=== PATIENT | male | born 1965 | race Two or more races ===

== ENCOUNTER 2017-01-11 19:03 | Emergency (ER) | payer OTHER ==
--- NOTE | 2017-01-11 19:12 | PDOC ---
History of Present Illness - General History Source: Patient Exam Limitations: No Limitations - History of Present Illness Initial Comments: 01/11/17 19:29 The patient is a 51 year old male, with a significant past medical history of HTN, HLD, and DM, who presents to the emergency department with intermittent abdominal pressure for about 2 months. The patient reports having intermittent abdominal pressure that often radiates from his abdomen to lower abdominal area and legs. He reports his pain is often alleviated after passing gas. He notes having a bowel movement every day, but denies any alleviation of his abdominal pressure. He notes during these episodes having elevated blood pressure and A1C. He denies any recent fevers, chills, headache or dizziness. He denies any recent nausea, vomit, or diarrhea. He denies any recent chest pain or shortness of breath. He denies any recent dysuria, frequency, urgency or hematuria. He denies having a intake worker. PAST MEDICAL HISTORY: See HPI PAST SURGICAL HISTORY: No significant history. FAMILY HISTORY: No pertinent history. SOCIAL HISTORY: Patient lives with family and is employed. MEDICATIONS: Reviewed. ALLERGIES: As per nursing notes. ROS General: No fevers or chills, no weakness, no weight loss HEENT: No change in vision. No sore throat. No ear pain CardioVascular: No chest pain or shortness of breath Respiratory:No cough, or wheezing. Gastrointestinal: +Abdominal pressure. No nausea, vomiting, diarrhea or constipation. No rectal bleeding Genitourinary: No dysuria, hematuria, or frequency Musculoskeletal: No joint or muscle pain or swelling Neurologic: No headache, vertigo, dizziness or loss of consciousness Psychiatric: No depression Skin: No rashes or easy bruising Endocrine: no increased thirst or abnormal weight change Allergic: no skin or latex allergy All other systems reviewed and normal Exam: General: Well-nourished well-developed individual, no acute distress HEENT: Throat: Normal, tonsils normal, no erythema or exudate Neck: Supple, no meningeal signs, no lymphadenopathy Eyes: Pupils equal reactive and round, extraocular motion intact Chest: Nontender to palpation Cardiac: S1-S2 normal, regular rate and rhythm, no murmurs rubs or gallops Respiratory: Lungs clear to auscultation bilateral Abdomen: Soft, nondistended, slightly increased bowel sounds, nontender to palpation diffusely Extremities: Warm, dry, no cyanosis, clubbing, or edema Skin: No rashes Neuro: Alert and oriented x3, nonfocal exam, grossly intact, normal gait Psych: Normal mood and affect <Gabe Albert - Last Filed: 01/11/17 19:55> - General History Source: Patient Exam Limitations: No Limitations - History of Present Illness Initial Comments: 01/11/17 20:17 A portion of this note was documented by scribe services under my direction. I have reviewed the details of the note, within reason, and agree with the documentation. The case summary and management plan written by me. Assessment and plan: This is a 51-year-old male who comes in complaining of increased abdominal gas with some decreased bowel movements. Patient has a history of diabetes. Patient said he hasn't been having intermittent episodes times several months now. Patient symptoms are most likely secondary to gastroparesis secondary to his diabetes. Patient had flat and upright abdominal films that do show a large amount of stool throughout the abdomen consistent with gastroparesis and chronic constipation. Discussed with patient the importance of getting purchasing some over-the- counter laxatives and taking on a daily basis also purchasing some fiber To take on a daily basis as well. Also discussed with patient the importance of following up with a intake worker to help him with management of his diabetes as his sugars have been trending higher and he is developing more complications of his underlying disease. Patient discharged home <Jimmie Robert I - Last Filed: 01/11/17 20:23> - General Chief Complaint: Pain Stated Complaint: ABDOMINAL PRESSUREPAIN Time Seen by Provider: 01/11/17 19:07 Past History <Gabe Albert - Last Filed: 01/11/17 19:55> - Past Medical History Diabetes: Yes (TYPE II) HTN: Yes Hypercholesterolemia: Yes - Psycho/Social/Smoking Cessation Hx Anxiety: No Suicidal Ideation: No Smoking History: Current every day smoker Number of Cigarettes Smoked Daily: 5 Information on smoking cessation initiated: Yes 'Breaking Loose' booklet given: 11/16/15 Hx Alcohol Use: No Drug/Substance Use Hx: No Substance Use Type: None <Jimmie Robert I - Last Filed: 01/11/17 20:23> - Past Medical History Allergies/Adverse Reactions: Allergies Allergy/AdvReac Type Severity Reaction Status Date / Time No Known Allergies Allergy Verified 01/11/17 19:05 Home Medications: Ambulatory Orders Glipizide 5 mg PO DAILY 01/11/17 Metformin HCl [Metformin HCl ER] 1,000 mg PO DAILY 01/11/17 Multivitamin [Poly-Vitamin] 1 each PO DAILY 01/11/17 Omeprazole 0 mg PO DAILY 01/11/17 *Physical Exam - Vital Signs Last Vital Signs Temp Pulse Resp BP Pulse Ox 98.1 F 73 18 184/102 100 01/11/17 19:04 01/11/17 19:04 01/11/17 19:04 01/11/17 19:04 01/11/17 19:04 <Gabe Albert - Last Filed: 01/11/17 19:55> - Vital Signs Last Vital Signs Temp Pulse Resp BP Pulse Ox 98.1 F 73 18 184/102 100 01/11/17 19:04 01/11/17 19:04 01/11/17 19:04 01/11/17 19:04 01/11/17 19:04 <Jimmie Robert I - Last Filed: 01/11/17 20:23> ED Treatment Course - LABORATORY CBC & Chemistry Diagram: 01/11/17 19:30 01/11/17 19:30 <Gabe Albert - Last Filed: 01/11/17 19:55> - LABORATORY CBC & Chemistry Diagram: 01/11/17 19:30 01/11/17 19:30 <Jimmie Robert I - Last Filed: 01/11/17 20:23> *DC/Admit/Observation/Transfer - Attestations Scribe Attestion: 01/11/17 19:24 Documentation prepared by Gabe Albert, acting as director of medical review for Jimmie Robert MD. <Gabe Albert - Last Filed: 01/11/17 19:55> - Discharge Dispostion Admit: No <Jimmie Robert I - Last Filed: 01/11/17 20:23> Diagnosis at time of Disposition: Constipation Qualifiers: Constipation type: slow transit constipation Qualified Code(s): K59.01 - Slow transit constipation - Discharge Dispostion Disposition: HOME Condition at time of disposition: Fair - Patient Instructions Printed Discharge Instructions: Smoking Cessation Additional Instructions: Your workup was normal with the exception of the x-rays did show a large amount of stool consistent with gastroparesis and slow transit through your GI tract. This most likely is what is contributing to your discomfort and symptoms. It is important that you follow-up with your doctor for referral to an intake worker/copy center specialist to help you manage your diabetes and complications that you're developing as a result of your diabetes. In addition to that your sugars were also high and a copy center specialist can also help you address your high sugars and better manage them as well. Until you can see a copy center specialist you should purchase an [id number] laxative and take it on a daily basis in addition to the [id number] laxative eat for 4-5 prunes with breakfast every day and you can also increase the fiber in your diet. As ways to help counteract the constipation. Return to the emergency department immediately with ANY new, persistent or worsening symptoms. Continue any medications as previously prescribed by your physician. You should follow up with your primary doctor as soon as possible regarding today's emergency department visit. . Please make sure your doctor reviews the results of your emergency evaluation. Thank you for coming to the Emergency Department today for your care. It was a pleasure to see you today. Please note that your evaluation is INCOMPLETE until you follow-up with your doctor.
[2017-01-11 19:13] VITALS: TEMP 98.1; BMI 23.9
[2017-01-11] MEDS ORDERED: SIMETHICONE 80 MG TAB.CHEW (FP) PO STA (19:30)
[2017-01-11] MEDS ORDERED: metFORMIN HCL 500 MG TABLET (FP) PO ONE (19:31)
[2017-01-11] MEDS ORDERED: SODIUM CHLORIDE 1,000 ML IV ONE (19:32)
[2017-01-11] MEDS ORDERED: metFORMIN HCL 500 MG TABLET (FP) ONE (19:39)
[2017-01-11] MEDS ORDERED: SIMETHICONE 80 MG TAB.CHEW (FP) ONE (19:40)
[2017-01-11 19:55] LABS: BASOPHIL 0.9 % (0-2.0); MCH 20.9 pg (25.7-33.7); MCHC 32.2 g/dl (32.0-35.9); MEAN PLT VOLUME 9.6 fl (7.5-11.1); PLATELET COUNT 120 K/MM3 (134-434); RDW 14.7 % (11.9-15.9); WHITE BLOOD COUNT 9.1 K/mm3 (4.0-10.8)
[2017-01-11 20:03] LABS: ALBUMIN 4.2 g/dl (3.5-5.0); ALK PHOS 59 U/L (32-92); ANION GAP 6 (8-16); BILIRUBIN,TOTAL 0.5 mg/dl (0.2-1.0); CALCIUM 9.4 mg/dl (8.4-10.2); CO2 30 mmol/L (22-28); CREATININE 0.7 mg/dl (0.6-1.3); GLUCOSE,RANDOM 251 mg/dl (74-106); SGOT/AST 25 U/L (10-42); SGPT/ALT 34 U/L (10-40); TOT PROT 7.2 g/dl (6.4-8.3)
[2017-01-11 20:34] VITALS: BP 143/86; PULSE 60
== END 2017-01-11 20:34 | disposition home or self-care (01) ==
LOC: FER 19:03
PROC: 3E0337Z Introduction of Electrolytic and Water Balance Substance into Peripheral Vein, Percutaneous Approach (ICD-10-PCS; principal; 2017-01-11)
DX: K59.01 Slow transit constipation (principal); I10 Essential (primary) hypertension; E78.5 Hyperlipidemia, unspecified; E11.9 Type 2 diabetes mellitus without complications
CPT/HCPCS: 36415; 74020-TC; 80053; 85025; 99283-25